=== PATIENT | female | born 1960 | race Caucasian/White ===

== ENCOUNTER 2018-05-12 05:44 | Day surgery (SDC) | payer OTHER ==
[~2018-05-12] VITALS: Ht 165.1 cm; Wt 123.6 kg
[2018-05-12 07:14] VITALS: Ht 165.1 cm; Wt 123.6 kg
[2018-05-12] MEDS ORDERED: METOPROLOL PO (07:27)
[2018-05-12] MEDS ORDERED: DEPAKOTE PO (07:27)
[2018-05-12] MEDS ORDERED: KLONOPIN PO (07:27)
[2018-05-12] MEDS ORDERED: BUSPAR PO (07:27)
[2018-05-12] MEDS ORDERED: SEROQUEL PO (07:27)
[2018-05-12] MEDS ORDERED: METFORMIN PO (07:27)
[2018-05-12] MEDS ORDERED: PAXIL PO (07:27)
[2018-05-12] MEDS ORDERED: IBUPROFEN PO (07:27)
[2018-05-12 07:40] VITALS: BP 146/69; PULSE 68; RESP 14
[2018-05-12] MEDS ORDERED: PROPOFOL 40 ML ONE (08:13)
[2018-05-12] MEDS ORDERED: PHENYLephrine (100 MCG/ML) 5ML SYG ONE (08:13)
--- NOTE | 2018-05-12 08:20 | PREAC ---
Date/Time of Note Date/Time of Note DATE: 05/12/18 TIME: 08:16 Anesthesia Eval and Record Evaluation Time Pre-Procedure Interview DATE: 05/12/18 TIME: 08:16 Age 57 Sex female NPO: 8 hrs Preoperative diagnosis gi screening Planned procedure egd colonoscopy Past Medical History Past Medical History: Includes Cardio: HTN Endo: Diabetes Pulm: Asthma Heme: Anemia Psych: Depression, Anxiety Surgery & Anesthesia Issues No known issue Meds Anticoagulation: No Beta Thong within 24 hr: No Reason Beta Thong not given: Pt. not on B-Thong Reported Medications [Metformin] No Conflict Check, PO 05/12/18 [Klonopin] No Conflict Check, PO 05/12/18 [Depakote] No Conflict Check, PO 05/12/18 [Buspar] No Conflict Check, PO 05/12/18 [Seroquel] No Conflict Check, PO 05/12/18 [Metoprolol] No Conflict Check, PO 05/12/18 [Paxil] No Conflict Check, PO 05/12/18 [Ibuprofen] No Conflict Check, PO 05/12/18 Meds reviewed: Yes Allergies Coded Allergies: Penicillins (Verified Allergy, Unknown, 05/12/18) amoxicillin (Verified Allergy, Unknown, 05/12/18) cephalexin (Verified Allergy, Unknown, 05/12/18) Allergies Reviewed: Yes Labs/Studies Labs Reviewed: Reviewed by anesthesiologist test: N/A Studies: ECG (na), CXR (na), Other Pre-procedure Exam Last vitals Vital Signs Date Temp Pulse Resp B/P (MAP) Pulse Ox O2 O2 Flow FiO2 Time Delivery Rate 05/12/18 98.0 68 14 146/69 99 Room Air 07:40 (94) Airway: Adequate mouth opening Mallampati: Mallampati I Teeth: Normal Lung: Normal Heart: Normal ASA Physical Status ASA physical status: 2 Emergency: None Planned Anesthetic General/MAC: MAC Pre-operative Attestations Prior to commencing anesthesia and surgery, the patient was re-evaluated, there was verification of: *The patient's identity *The results of appropriate recent lab work and preoperative vital signs *The above evaluation not changing prior to induction *Anesthetic plan, risk benefits, alternative and complications discussed with patient/family; questions answered; patient/family understands, accepts and wishes to proceed. ARMINDA MAYEN MD May 12, 2018 08:20
[2018-05-12] MEDS ORDERED: morphine (1 MG/ML) 10ML SYRINGE IV PRN (08:30)
[2018-05-12] MEDS ORDERED: ONDANSETRON 4 MG INJ IV PRN (08:30)
--- NOTE | 2018-05-12 09:15 | PAC ---
Date/Time of Note Date/Time of Note DATE: 05/12/18 TIME: 09:15 Post-Anesthesia Notes Post-Anesthesia Note Last documented vital signs Vital Signs Date Temp Pulse Resp B/P (MAP) Pulse Ox O2 O2 Flow FiO2 Time Delivery Rate 05/12/18 98.0 68 14 146/69 99 Room Air 07:40 (94) Activity: WNL Respiratory function: WNL Cardiovascular function: WNL Mental status: Baseline Pain reasonably controlled: Yes Hydration appropriate: Yes Nausea/Vomiting absent: Yes ARMINDA MAYEN MD May 12, 2018 09:15
== END 2018-05-12 14:30 | disposition home or self-care (01) ==
LOC: GIL 05:44
PROVIDERS: ATTEND Internal Medicine Gastroenterology
DX: Z12.11 Encounter for screening for malignant neoplasm of colon (principal); K64.8 Other hemorrhoids; K29.60 Other gastritis without bleeding; I10 Essential (primary) hypertension; E11.9 Type 2 diabetes mellitus without complications; J45.909 Unspecified asthma, uncomplicated
CPT/HCPCS: 43239; 45380; J2370; Z7610; 88305; 88312